=== PATIENT | female | born 1945 | race Caucasian/White ===

== ENCOUNTER → 2017-07-25 | Outpatient (CLI) | payer OTHER | LOC: BRMIMAGING 13:56 | PROVIDERS: ATTEND Family Medicine | DX: Z13.820 Encounter for screening for osteoporosis (principal); M85.80 Other specified disorders of bone density and structure, unspecified site; E07.9 Disorder of thyroid, unspecified; Z82.62 Family history of osteoporosis; Z78.0 Asymptomatic menopausal state; Z79.890 Hormone replacement therapy ==

== ENCOUNTER → 2019-03-29 | Outpatient (CLI) | payer OTHER | LOC: CIMAGING 13:55 ==